=== PATIENT | male | born 1980 | race Caucasian/White ===

== ENCOUNTER 2022-08-01 10:26 | Observation (INO) ==
[2022-08-01] MEDS ORDERED: SODIUM CHLORIDE 0.9% 1,000 ML IV STA (11:32)
[2022-08-01] MEDS ORDERED: MORPHINE 2 MG/1 ML SYRINGE IV STA (11:32)
[2022-08-01] MEDS ORDERED: ONDANSETRON 4 MG/2 ML VIAL IV STA (11:32)
[2022-08-01 11:38] LABS: Basophils % 0.3 % (0.0-0.8); Eosinophils % 0.3 % (0.00-10.9); Hematocrit 43.3 VOL% (42.0-52.0); Hemoglobin 14.9 GM/DL (14.0-18.0); Immature Granulocytes % 0.3 %; Immature Granulocytes Absolute 0.04 #; Lymphocytes # 1.2 10*3/uL (1.4-4.0); Lymphocytes % 10.4 % (21.2-54.2); Mean Corpuscular HGB Conc 34.4 GM/DL (32-36); Mean Corpuscular Volume 88.2 FL (87-102); Monocytes % 8.3 % (1.7-12.7); Neutrophils % 80.4 % (38.7-73.9); Platelet Count 262 T/CUMM (130-400); Red Blood Count 4.91 MC/CUMM (3.8-5.5); Red Cell Distribution Width 11.7 % (9.3-17.3)
[2022-08-01 11:53] LABS: Albumin 4.2 G/DL (3.4-5.0); Bilirubin,Total 0.9 MG/DL (0.20-1.00); Calcium 9.7 MG/DL (8.5-10.1); Osmolality,Calculated 271.8 MOS/KG (273-304); Potassium 3.8 MMOL/L (3.5-5.1)
[2022-08-01] MEDS ORDERED: cefTRIAXone 1,000 MG in SODIUM CHLORIDE 0.9% 100 ML IV STA (12:47)
[2022-08-01] MEDS ORDERED: metroNIDAZOLE INJ 500 MG/100 ML PREMIX IV STA (12:47)
[2022-08-01 12:51] LABS: RBC,Urine 1 /HPF (0-4)
[2022-08-01 12:52] LABS: Bilirubin,Urine Negative (Negative); Blood, Urine Negative (Negative); Glucose,Urine (UA) Negative (Negative); Ketones,Urine Negative (Negative); Nitrite,Urine Negative (Negative); Protein,Urine Negative (Negative); Urine Appearance Clear (Clear); Urine Color Yellow (Yellow); Urine Urobilinogen 0.2 eU/dL (<2.0)
[2022-08-01] MEDS: SODIUM CHLORIDE 0.9% 1,000 ML IV SCH ×2 (15:00→22:09)
[2022-08-01] MEDS: HYDROmorphone 1 MG/1 ML SYRINGE IV PRN ×2 (15:01→19:03)
[2022-08-01] MEDS: ACETAMINOPHEN 325 MG TABLET PO PRN (18:38)
[2022-08-01] MEDS: metroNIDAZOLE INJ 500 MG/100 ML PREMIX IV SCH (22:05)
[2022-08-01] MEDS: allopurinoL 100 MG TABLET PO SCH (22:05)
[2022-08-01] MEDS: DOCUSATE SODIUM 100 MG CAPSULE PO SCH (22:05)
[2022-08-02] MEDS ORDERED: cefTRIAXone 1,000 MG in SODIUM CHLORIDE 0.9% 100 ML IV SCH
[2022-08-02] MEDS: ACETAMINOPHEN 325 MG TABLET PO PRN ×3 (00:09→16:12)
[2022-08-02] MEDS: HYDROmorphone 1 MG/1 ML SYRINGE IV PRN ×5 (00:10→21:50)
[2022-08-02] MEDS: metroNIDAZOLE INJ 500 MG/100 ML PREMIX IV SCH ×3 (05:53→21:56)
[2022-08-02 05:58] LABS: Basophils % 0.4 % (0.0-0.8); Eosinophils # 0.1 10*3/uL (0.0-0.87); Eosinophils % 1.2 % (0.00-10.9); Hematocrit 37.6 VOL% (42.0-52.0); Immature Granulocytes % 0.4 %; Immature Granulocytes Absolute 0.03 #; Lymphocytes # 1.8 10*3/uL (1.4-4.0); Lymphocytes % 24.3 % (21.2-54.2); Mean Corpuscular HGB Conc 34.3 GM/DL (32-36); Mean Platelet Volume 10.5 FL (9.6-12.0); Monocytes # 0.8 10*3/uL (0.11-0.8); Monocytes % 11.2 % (1.7-12.7); Neutrophils % 62.5 % (38.7-73.9); Red Blood Count 4.13 MC/CUMM (3.8-5.5); Red Cell Distribution Width 11.8 % (9.3-17.3)
[2022-08-02 05:59] LABS: Hemoglobin 12.9 GM/DL (14.0-18.0); White Blood Count 7.3 T/CUMM (4-12)
[2022-08-02 06:00] LABS: Platelet Count 188 T/CUMM (130-400)
[2022-08-02 06:02] LABS: Calcium 8.7 MG/DL (8.5-10.1); Osmolality,Calculated 276.4 MOS/KG (273-304); Potassium 3.7 MMOL/L (3.5-5.1)
[2022-08-02] MEDS: SODIUM CHLORIDE 0.9% 1,000 ML IV SCH ×2 (07:44→17:37)
[2022-08-02] MEDS ORDERED: PANTOPRAZOLE 40 MG TABLET PO SCH (09:00)
[2022-08-02] MEDS: PANTOPRAZOLE 40 MG TABLET PO SCH (09:22)
[2022-08-02] MEDS: DOCUSATE SODIUM 100 MG CAPSULE PO SCH ×2 (09:22→21:49)
[2022-08-02] MEDS: allopurinoL 100 MG TABLET PO SCH ×2 (09:22→21:49)
[2022-08-02] MEDS: LOSARTAN 25 MG TABLET PO SCH (09:23)
[2022-08-02] MEDS: amLODIPine 5 MG TABLET PO SCH (09:23)
[2022-08-02] MEDS: cefTRIAXone 1,000 MG in SODIUM CHLORIDE 0.9% 100 ML IV SCH (11:45)
[2022-08-02] MEDS: ONDANSETRON 4 MG/2 ML VIAL IV PRN ×2 (16:11→21:55)
[2022-08-03] MEDS: cefTRIAXone 1,000 MG in SODIUM CHLORIDE 0.9% 100 ML IV SCH ×2 (00:03→11:54)
[2022-08-03] MEDS: SODIUM CHLORIDE 0.9% 1,000 ML IV SCH ×3 (02:54→11:54)
[2022-08-03] MEDS: metroNIDAZOLE INJ 500 MG/100 ML PREMIX IV SCH ×2 (04:55→13:14)
[2022-08-03 05:40] LABS: Basophils # 0.1 10*3/uL (0.0-0.2); Basophils % 0.6 % (0.0-0.8); Eosinophils # 0.2 10*3/uL (0.0-0.87); Eosinophils % 2.4 % (0.00-10.9); Hematocrit 40.4 VOL% (42.0-52.0); Hemoglobin 13.9 GM/DL (14.0-18.0); Immature Granulocytes % 0.3 %; Immature Granulocytes Absolute 0.03 #; Lymphocytes # 2.4 10*3/uL (1.4-4.0); Lymphocytes % 28.1 % (21.2-54.2); Mean Corpuscular HGB Conc 34.4 GM/DL (32-36); Mean Corpuscular Volume 91.2 FL (87-102); Mean Platelet Volume 10.7 FL (9.6-12.0); Monocytes # 0.6 10*3/uL (0.11-0.8); Monocytes % 6.6 % (1.7-12.7); Platelet Count 253 T/CUMM (130-400); Red Blood Count 4.43 MC/CUMM (3.8-5.5); Red Cell Distribution Width 11.7 % (9.3-17.3); White Blood Count 8.6 T/CUMM (4-12)
[2022-08-03 06:03] LABS: Albumin 3.4 G/DL (3.4-5.0); Bilirubin,Total 0.6 MG/DL (0.20-1.00); Calcium 9.1 MG/DL (8.5-10.1); Osmolality,Calculated 279.1 MOS/KG (273-304); Potassium 3.8 MMOL/L (3.5-5.1); Total Protein 7.1 G/DL (6.4-8.2)
[2022-08-03] MEDS ORDERED: LACTATED RINGERS 1,000 ML IV SCH (06:30)
[2022-08-03] MEDS: LOSARTAN 25 MG TABLET PO SCH (09:47)
[2022-08-03] MEDS: amLODIPine 5 MG TABLET PO SCH (09:47)
[2022-08-03] MEDS: allopurinoL 100 MG TABLET PO SCH (09:47)
[2022-08-03] MEDS: DOCUSATE SODIUM 100 MG CAPSULE PO SCH (09:47)
[2022-08-03] MEDS: PANTOPRAZOLE 40 MG TABLET PO SCH (09:47)
[2022-08-03] MEDS: HYDROmorphone 1 MG/1 ML SYRINGE IV PRN (13:20)
[2022-08-03 16:07] VITALS: BP 119/75
== END 2022-08-03 16:14 | disposition home or self-care (01) ==
LOC: N.EDINP 10:26 → N.ED 10:26 → N.2W 16:37
PROVIDERS: ADMIT Family Medicine; ATTEND Family Medicine

== ENCOUNTER 2022-09-02 10:57 | Observation (INO) ==
[2022-09-02] MEDS ORDERED: DOCUSATE SODIUM 100 MG CAPSULE PO PRN (13:52)
[2022-09-02] MEDS ORDERED: ACETAMINOPHEN 325 MG TABLET PO PRN (13:52)
[2022-09-02 16:07] LABS: Basophils % 0.5 % (0.0-0.8); Eosinophils # 0.1 10*3/uL (0.0-0.87); Eosinophils % 1.9 % (0.00-10.9); Hematocrit 42.8 VOL% (42.0-52.0); Hemoglobin 14.5 GM/DL (14.0-18.0); Immature Granulocytes % 0.5 %; Immature Granulocytes Absolute 0.03 #; Lymphocytes # 1.9 10*3/uL (1.4-4.0); Lymphocytes % 30.2 % (21.2-54.2); Mean Corpuscular HGB Conc 33.9 GM/DL (32-36); Mean Corpuscular Volume 88.6 FL (87-102); Mean Platelet Volume 10.2 FL (9.6-12.0); Monocytes # 0.5 10*3/uL (0.11-0.8); Monocytes % 7.4 % (1.7-12.7); Neutrophils % 59.5 % (38.7-73.9); Platelet Count 187 T/CUMM (130-400); Red Blood Count 4.83 MC/CUMM (3.8-5.5); Red Cell Distribution Width 12.4 % (9.3-17.3); White Blood Count 6.35 T/CUMM (4-12)
[2022-09-02] MEDS: CIPROFLOXACIN INJ 400 MG/200 ML PREMIX IV SCH (16:17)
[2022-09-02] MEDS: SODIUM CHLORIDE 0.9% 1,000 ML IV SCH (16:17)
[2022-09-02] MEDS: ONDANSETRON 4 MG/2 ML VIAL IV PRN ×2 (16:25→22:23)
[2022-09-02] MEDS: HYDROmorphone 1 MG/1 ML SYRINGE IV PRN ×2 (16:26→22:25)
[2022-09-02 16:31] LABS: Albumin 4.1 G/DL (3.4-5.0); Calcium 9.6 MG/DL (8.5-10.1); Osmolality,Calculated 273.7 MOS/KG (273-304); Potassium 3.9 MMOL/L (3.5-5.1); Total Protein 7.3 G/DL (6.4-8.2)
[2022-09-02] MEDS ORDERED: POLYETHYLENE GLYCOL POWDER 255 GM BOTTLE PO ONE (18:00)
[2022-09-02 18:31] LABS: Bilirubin,Urine Negative (Negative); Blood, Urine Negative (Negative); Glucose,Urine (UA) Negative (Negative); Ketones,Urine Negative (Negative); Nitrite,Urine Negative (Negative); Protein,Urine Negative (Negative); Urine Appearance Clear (Clear); Urine Color Yellow (Yellow); Urine Specific Gravity 1.015 (1.001-1.035); Urine Urobilinogen 0.2 eU/dL (<2.0)
[2022-09-02] MEDS: metroNIDAZOLE INJ 500 MG/100 ML PREMIX IV SCH (18:46)
[2022-09-03] MEDS: metroNIDAZOLE INJ 500 MG/100 ML PREMIX IV SCH ×2 (02:24→11:27)
[2022-09-03] MEDS: CIPROFLOXACIN INJ 400 MG/200 ML PREMIX IV SCH ×2 (04:34→15:45)
[2022-09-03] MEDS ORDERED: POLYETHYLENE GLYCOL POWDER 255 GM BOTTLE PO ONE (05:00)
[2022-09-03 05:16] LABS: PT Patient Result 11.3 SECS (10.1-12.1)
[2022-09-03] MEDS: ONDANSETRON 4 MG/2 ML VIAL IV PRN ×2 (05:20→12:32)
[2022-09-03] MEDS: HYDROmorphone 1 MG/1 ML SYRINGE IV PRN ×2 (05:21→12:39)
[2022-09-03] MEDS: SODIUM CHLORIDE 0.9% 1,000 ML IV SCH ×2 (06:19→12:32)
[2022-09-03] MEDS ORDERED: LACTATED RINGERS 1,000 ML IV SCH (08:00)
[2022-09-03] MEDS ORDERED: LOSARTAN 25 MG TABLET PO SCH (09:00)
[2022-09-03] MEDS ORDERED: amLODIPine 5 MG TABLET PO SCH (09:00)
[2022-09-03] MEDS ORDERED: NON-FORMULARY MEDICATION (Omeprazole 40 mg capsule,delayed release(DR/EC)) PO SCH (09:00)
[2022-09-03] MEDS ORDERED: ROSUVASTATIN 10 MG TABLET PO SCH (09:00)
[2022-09-03] MEDS ORDERED: PANTOPRAZOLE 40 MG TABLET PO SCH (09:00)
[2022-09-03] MEDS ORDERED: LIDOCAINE 2% 5 ML VIAL ONE (09:04)
[2022-09-03] MEDS ORDERED: propofoL 200 MG/20 ML VIAL IV ONE ×2 (09:04→09:21)
[2022-09-03] MEDS ORDERED: ONDANSETRON 4 MG/2 ML VIAL IV ONE (09:40)
[2022-09-03 15:56] VITALS: BP 138/61
== END 2022-09-03 16:47 | disposition home or self-care (01) ==
LOC: N.3E
PROVIDERS: ADMIT Family Medicine; ATTEND Family Medicine